=== PATIENT | female | born 1995 | race Two or more races ===

== ENCOUNTER 2023-10-06 16:28 | Emergency (ER) | payer OTHER ==
[~2023-10-06] VITALS: Ht 167.6 cm; Wt 108.9 kg
[2023-10-06 19:14] VITALS: TEMP 100.5
[2023-10-06] MEDS ORDERED: IBUPROFEN 400 MG TABLET ONE (19:33)
[2023-10-06] MEDS: IBUPROFEN 400 MG TABLET PO ONE (19:36)
[2023-10-06] MEDS ORDERED: IBUP-1955 PO (21:35)
[2023-10-06] MEDS ORDERED: ACET-2605 PO (21:35)
[2023-10-06 21:42] VITALS: BP 125/80; O2SAT 99
== END 2023-10-06 21:41 | disposition home or self-care (01) ==
LOC: ER 16:28
DX: R50.9 Fever, unspecified (principal); H61.23 Impacted cerumen, bilateral; Z79.899 Other long term (current) drug therapy; Z20.822 Contact with and (suspected) exposure to COVID-19
CPT/HCPCS: 99284; 71045; 87426; 87804 ×2; 87070; 87880; A6403; 86403-TC